=== PATIENT | male | born 1985 | race Caucasian/White ===

== ENCOUNTER → 2021-06-14 16:23 | Outpatient (CLI) | payer BC, SELFPAY ==
--- NOTE | ~2021-06-14 | XR_ITS ---
EXAMINATION: XR wrist RT min 3V DATE: 06/14/2021 16:31 INDICATION: Right wrist pain. TECHNIQUE: 4 views of right wrist were obtained. COMPARISON: None. FINDINGS: There is an avulsion fracture of dorsal pole of triquetrum. Joint spaces are normal. IMPRESSION: 1. Avulsion fracture of dorsal pole of triquetrum. Reviewed, dictated and finalized at location A. [employer]KING MACHINE OPERATOR
== END ==
PROVIDERS: Visit Provider Physician Assistant
DX: S62.111A Displaced fracture of triquetrum [cuneiform] bone, right wrist, initial encounter for closed fracture (principal); X58.XXXA Exposure to other specified factors, initial encounter
CPT/HCPCS: 73110

== ENCOUNTER 2021-07-23 10:09 | Emergency (ER) | payer BC, SELFPAY ==
[2021-07-23 10:54] VITALS: BP 137/88; PULSE 105; RESP 18; TEMP 36.8; O2SAT 97
--- NOTE | 2021-07-23 11:18 | ED.URI ---
HPI - URI/Sore Throat General Chief Complaint: Upper Respiratory Infection Stated Complaint: runny nose,cough,sinus pressure Time Seen by Provider: 07/23/21 11:08 Source: patient and RN notes reviewed Mode of arrival: ambulatory Limitations: no limitations History of Present Illness HPI Narrative: Asher is a 35-year-old male patient who ambulated into the [facility]. Patient states he had a sore throat on Monday was tired and fatigued on Monday. Patient states has had congestion sneezing and sinus pressure for the last 3 days. Patient states he did have an exposure to a positive coworker on July 08. Patient has been taking Sudafed, Mucinex, and Tylenol with minimal relief MD elicited complaint: nasal congestion and sinus pain Related Data Home Medications Medication Instructions Recorded Confirmed mirabegron [Myrbetriq] 25 mg PO DAILY 07/23/21 07/23/21 Allergies Allergy/AdvReac Type Severity Reaction Status Date / Time No Known Allergies Allergy Verified 07/23/21 11:11 Review of Systems Review of Systems: CONSTITUTIONAL: Denies body aches,+ fever,denies chills, or sweats. EYES: Denies visual changes, redness, or discharge. ENT: +rhinorrhea,+ congestion,+ sore throat, DENIES otalgia. CARDIOVASCULAR: Denies chest pain, palpitations, or edema. RESPIRATORY: Denies cough or dyspnea. GASTROINTESTINAL: Denies abdominal pain, nausea, vomiting, or diarrhea. GENITOURINARY: Denies dysuria or hematuria. SKIN: Denies rash, itching, or wounds. MUSCULOSKELETAL: Denies back pain, joint pain, or myalgia. NEUROLOGIC: Denies headache, numbness, tingling, or weakness. PSYCH: Denies depression or anxiety. All systems reviewed & are unremarkable except as noted in HPI and below PMFSH Past Medical History Medical History Allergies Family History Family History Father Diabetes mellitus Family history of hypercholesterolemia Hypertension Malignant neoplasm of prostate Grandparent Diabetes mellitus Family history of Alzheimer's disease Family history of malignant neoplasm of breast Mother Depression Hypertension Social History Social History Smoking status: Never smoker Alcohol intake: current Gender identity (if verbalized by the patient): Male Exam Narrative: GENERAL: Well-appearing, well-nourished, and in no acute distress. HEAD: Normocephalic, atraumatic. EYES: EOMI. No redness or drainage. Conjunctivae normal. ENT: Mucous membranes pink and moist. Nasal membranes are erythemic. No rhinorrhea noted. Bilateral tympanic membranes are dull with minimal fluid ,no erythema noted. posterior pharynx is erythemic with mild edema moderate postnasal drainage noted. Uvula midline. NECK: Normal AROM. Supple. No lymphadenopathy. CHEST: No respiratory distress. Clear to auscultation. HEART: Regular rate and rhythm. No murmur appreciated. Normal peripheral pulses. ABDOMEN: Soft, nontender, nondistended, normal active bowel sounds. MUSCULOSKELETAL: No bony tenderness. EXTREMITIES: Normal range of motion. No edema. SKIN: Warm, dry, no rash. Capillary refill normal. Normal skin turgor. NEURO: No focal deficits. Alert and oriented x3. Gait steady. PSYCH: Normal affect. No signs of depression or anxiety. Course Vital Signs Vital signs: Vital Signs Temperature 36.8 C 07/23/21 10:54 Pulse Rate 105 H 07/23/21 10:54 Respiratory Rate 18 07/23/21 10:54 Blood Pressure 137/88 07/23/21 10:54 Pulse Oximetry 97 07/23/21 10:54 Temperature 36.8 C 07/23/21 10:54 Pulse Rate 105 H 07/23/21 10:54 Respiratory Rate 18 07/23/21 10:54 Blood Pressure 137/88 07/23/21 10:54 Pulse Oximetry 97 07/23/21 10:54 Reviewed MDM - URI/Sore Throat MDM Narrative Medical decision making narrative: Rapid COVID-19 is negative.
== END 2021-07-23 11:33 | disposition home or self-care (01) ==
PROVIDERS: Emergency Provider Nurse Practitioner Family; PCP Family Medicine
DX: J06.9 Acute upper respiratory infection, unspecified (principal); Z20.822 Contact with and (suspected) exposure to COVID-19
CPT/HCPCS: 87426; 99213; C9803; G0463

== ENCOUNTER → 2021-09-20 10:38 | Outpatient (CLI) | payer BC, SELFPAY ==
--- NOTE | ~2021-09-20 | XR_ITS ---
EXAMINATION: XR lumbar spine 2-3V DATE: 09/20/2021 10:57 INDICATION: Lumbar radiculopathy TECHNIQUE: Anteroposterior and lateral views of the lumbar spine, and cone-down lateral view of the l umbosacral junction were obtained. COMPARISON: None. FINDINGS: There is no fracture. There are 2 mm of retrolisthesis of L5 on S1. The vertebral body alig nment is otherwise normal. There is mild loss of intervertebral disc space height at L4-5 and L5-S1. IMPRESSION: 1. Mild lumbar spondylosis without acute findings. Reviewed, dictated and finalized at location F. TAPPER
== END ==
PROVIDERS: Visit Provider Physician Assistant
DX: M47.26 Other spondylosis with radiculopathy, lumbar region (principal)
CPT/HCPCS: 72100

== ENCOUNTER → 2021-10-20 17:58 | Outpatient (CLI) | payer BC, SELFPAY ==
--- NOTE | ~2021-10-20 | MR_ITS ---
EXAMINATION: MR lumbar spine wo con EXAM DATE: 10/20/2021 18:41 INDICATION: M54.16 - Radiculopathy, lumbar region. TECHNIQUE: Multi-sequential, multiplanar MR images of the lumbar spine were obtained without contrast . Sagittal T1, T2, T2 fat saturation images. Axial T2 weighted images. There is no prior study for comparison. FINDINGS: Vertebral body and disc heights are well-maintained. There are no suspicious marrow signal abnormalities. The conus medullaris terminates at the L1/2 level and has normal signal intensity and morphology. Paraspinal soft tissue is unremarkable. There is 2-3 mm retrolisthesis L5 on S1. The wilver tebral bodies are otherwise aligned. Level by level evaluation: T12-L1: Disc does not extend beyond the endplate margin. Facet arthropathy: None. Neural foraminal stenosis: No stenosis. Central canal stenosis: No stenosis. L1-L2: Disc does not extend beyond the endplate margin. Facet arthropathy: Mild. Neural foraminal stenosis: No stenosis. Central canal stenosis: No stenosis. L2-L3: Disc does not extend beyond the endplate margin. Facet arthropathy: Mild. Neural foraminal stenosis: No stenosis. Central canal stenosis: No stenosis. L3-L4: Disc does not extend beyond the endplate margin. Facet arthropathy: Mild. Neural foraminal stenosis: No stenosis. Central canal stenosis: No stenosis. L4-L5: There is a mild diffuse disc bulge. Facet arthropathy: Mild. Neural foraminal stenosis: No stenosis. Central canal stenosis: No stenosis. L5-S1: There is a mild diffuse disc bulge. Facet arthropathy: Mild. Neural foraminal stenosis: No stenosis. Central canal stenosis: No stenosis. IMPRESSION: 1. Mild lumbar spondylosis. Reviewed, dictated and finalized at location G. IMPRESSION: 1. Mild lumbar spondylosis.
== END ==
PROVIDERS: Visit Provider Physician Assistant
DX: M54.16 Radiculopathy, lumbar region (principal); M47.816 Spondylosis without myelopathy or radiculopathy, lumbar region
CPT/HCPCS: 72148

== ENCOUNTER 2023-11-17 13:24 | Outpatient (CLI) | payer OTHER, SELFPAY ==
--- NOTE | ~2023-11-17 | XR_ITS ---
EXAMINATION: XR foot LT 2V DATE: 11/17/2023 13:36 INDICATION: Pain in unspecified foot. TECHNIQUE: 2 views of left foot were obtained. COMPARISON: None. FINDINGS: Bone alignment is normal. No fracture. There is mild osteoarthritis of talonavicular joint. IMPRESSION: 1. Mild osteoarthritis of talonavicular joint. Reviewed, dictated and finalized at location E.
== END 2023-11-17 13:25 ==
PROVIDERS: PCP Family Medicine; Visit Provider Nurse Practitioner Family
DX: M19.072 Primary osteoarthritis, left ankle and foot (principal)
CPT/HCPCS: 73620